=== PATIENT | female | born 1970 | race Caucasian/White ===

== ENCOUNTER 2024-12-03 14:38 | Emergency (ER) | payer MEDICAID ==
[~2024-12-03] VITALS: Ht 167.6 cm; Wt 65.3 kg
[2024-12-03] MEDS ORDERED: ACETAMINOPHEN ES 500 MG TABLET ONE (15:03)
[2024-12-03] MEDS: ACETAMINOPHEN ES 500 MG TABLET PO ONE (15:08)
[2024-12-03 17:09] VITALS: BP 116/73; TEMP 98.1; O2SAT 99
== END 2024-12-03 17:10 | disposition home or self-care (01) ==
LOC: ER 14:38
DX: R51.9 Headache, unspecified (principal); Z85.3 Personal history of malignant neoplasm of breast; Z88.8 Allergy status to other drugs, medicaments and biological substances; W11.XXXA Fall on and from ladder, initial encounter; Y93.89 Activity, other specified; Y92.89 Other specified places as the place of occurrence of the external cause; Y99.8 Other external cause status
CPT/HCPCS: 70450-TC; 71100-TC; 72125-TC